=== PATIENT | female | born 1985 | race Two or more races ===

== ENCOUNTER 2017-05-26 13:43 | Emergency (ER) | payer SELFPAY ==
[2017-05-26 14:40] LABS: ABSOLUTE BASOPHILS # (AUTO) 0.1 10^3/uL (0.0-0.2); ABSOLUTE EOSINOPHILS # (AUTO) 0.3 10^3/uL (0.0-0.6); ABSOLUTE LYMPHOCYTES (AUTO) 3.2 10^3/uL (0.5-4.7); ABSOLUTE MONOCYTES (AUTO) 0.8 10^3/uL (0.1-1.4); ABSOLUTE NEUT (AUTO) 5.5 10^3/uL (1.7-8.2); BASOPHILS % (AUTO) 0.8 % (0-2); EOSINOPHILS % (AUTO) 3.5 % (0-6); HEMATOCRIT 40.1 % (36.0-47.0); HEMOGLOBIN 13.4 g/dL (12.0-15.5); HGB HCT DIFFERENCE 0.1; LYMPHOCYTES % (AUTO) 32.1 % (13-45); MEAN CORPUSCULAR HGB CONC 33.4 g/dL (32.0-36.0); MEAN CORPUSCULAR VOLUME 81 fl (80-97); MONOCYTES % (AUTO) 8.1 % (3-13); RED BLOOD COUNT 4.96 10^6/uL (3.72-5.28); RED CELL DISTRIBUTION WIDTH 14.5 % (11.5-14.0); SEGMENTED NEUTROPHILS % (AUTO) 55.5 % (42-78); WHITE BLOOD COUNT 9.9 10^3/uL (4.0-10.5)
[2017-05-26 14:46] LABS: APPEARANCE,URINE SLIGHTLY-CLOUDY; BILIRUBIN,URINE NEGATIVE (NEGATIVE); GLUCOSE, URINE NEGATIVE (NEGATIVE); KETONES,URINE NEGATIVE (NEGATIVE); LEUKOCYTE ESTERASE,URINE TRACE (NEGATIVE); NITRITE,URINE NEGATIVE (NEGATIVE); PROTEIN,URINE NEGATIVE (NEGATIVE); URINE SPECIFIC GRAVITY 1.011; UROBILINOGEN,URINE NEGATIVE mg/dL (<2.0)
[2017-05-26 14:54] LABS: ALANINE AMINOTRANSFERASE 36 U/L (9-52); ALBUMIN 4.6 g/dL (3.5-5.0); ALKALINE PHOSPHATASE 85 U/L (38-126); ANION GAP 12 (5-19); ASPARTATE AMINO TRANSFERASE 22 U/L (14-36); BILIRUBIN,DIRECT 0.3 mg/dL (0.0-0.4); BILIRUBIN,TOTAL 0.5 mg/dL (0.2-1.3); BLOOD UREA NITROGEN 11 mg/dL (7-20); CALCIUM 9.6 mg/dL (8.4-10.2); CARBON DIOXIDE 23 mmol/L (22-30); CHLORIDE 106 mmol/L (98-107); GLUCOSE 98 mg/dL (75-110); POTASSIUM 3.9 mmol/L (3.6-5.0); SODIUM 140.9 mmol/L (137-145); TOTAL PROTEIN 8.7 g/dL (6.3-8.2)
--- NOTE | 2017-05-26 15:08 | ER Document Report ---
ED General - General Chief Complaint: Chest Pain Stated Complaint: BACK/CHEST PAIN Time Seen by Provider: 05/26/17 14:10 Information source: Patient Notes: Patient states she woke up this morning with left-sided moderate to severe chest pain. Nothing made it better or worse. It was sharp and did not radiate. It was associated with some shortness of breath. Patient states that she does have antiphospholipid syndrome and is concerned about a blood clot. She has not had any leg swelling. She states she was told that she does not have lupus. No cough cold or congestion. Pain was constant. Patient states she had a large burp in the waiting room and now feels significantly better. TRAVEL OUTSIDE OF THE [place] IN LAST 30 DAYS: No - Related Data Allergies/Adverse Reactions: No Known Allergies Allergy (Verified 05/26/17 13:47) Past Medical History - Social History Smoking Status: Current Some Day Smoker Frequency of alcohol use: Occasional Drug Abuse: None Family History: Reviewed & Not Pertinent Patient has suicidal ideation: No Patient has homicidal ideation: No Pulmonary Medical History: Reports: Hx Asthma Renal/ Medical History: Denies: Hx Peritoneal Dialysis Past Surgical History: Reports: Hx Section - Immunizations Hx Diphtheria, Pertussis, Tetanus Vaccination: Yes Review of Systems - Review of Systems Constitutional: denies: Chills, Fever Cardiovascular: Chest pain. denies: Palpitations Respiratory: Short of breath. denies: Cough Genitourinary: denies: Dysuria, Flank pain -: Yes All other systems reviewed and negative Physical Exam - Vital signs Interpretation: Normal - General General appearance: Appears well, Alert - HEENT Head: Normocephalic, Atraumatic Eyes: Normal Pupils: PERRL - Respiratory Respiratory status: No respiratory distress Chest status: Nontender Breath sounds: Normal Chest palpation: Normal - Cardiovascular Rhythm: Regular Heart sounds: Normal auscultation Murmur: No - Abdominal Inspection: Normal Distension: No distension Bowel sounds: Normal Tenderness: Nontender Organomegaly: No organomegaly - Back Back: Normal, Nontender - Extremities General upper extremity: Normal inspection, Nontender, Normal color, Normal ROM , Normal temperature General lower extremity: Normal inspection, Nontender, Normal color, Normal ROM , Normal temperature, Normal weight bearing. No: David's sign - Neurological Neuro grossly intact: Yes Cognition: Normal Orientation: AAOx4 [place] Coma Scale Eye Opening: Spontaneous [place] Coma Scale Verbal: Oriented [place] Coma Scale Motor: Obeys Commands Saray Coma Scale Total: 15 Speech: Normal Motor strength normal: LUE, RUE, LLE, RLE Sensory: Normal - Psychological Associated symptoms: Normal affect, Normal mood - Skin Skin Temperature: Warm Skin Moisture: Dry Skin Color: Normal Course - Laboratory Result Diagrams: 05/26/17 14:28 05/26/17 14:28 Laboratory results interpreted by me: 05/26/17 05/26/17 05/26/17 14:15 14:28 14:28 RDW 14.5 H Total Protein 8.7 H Ur Leukocyte Esterase TRACE H Discharge - Discharge Condition: Stable Disposition: HOME, SELF-CARE Instructions: Chest Pain of Unclear Cause ([facility]) Additional Instructions: Please follow-up with your primary care physician as scheduled.
== END 2017-05-26 15:17 | disposition home or self-care (01) ==
LOC: ER 13:43
DX: R07.9 Chest pain, unspecified (principal); R06.02 Shortness of breath; D68.61 Antiphospholipid syndrome; F17.200 Nicotine dependence, unspecified, uncomplicated
CPT/HCPCS: 36415; 80053; 81001; 81025; 84484; 85025; 85379; 99285

== ENCOUNTER 2020-03-13 22:29 | Emergency (ER) | payer SELFPAY ==
[2020-03-13] MEDS ORDERED: PREDNISONE 20 MG TABLET PO ONE (22:39)
[2020-03-13] MEDS ORDERED: IPRATROPIUM/ALBUTEROL 0.5-2.5 MG/3 ML AMPUL NEB ONE (22:39)
[2020-03-13] MEDS: ALBUTEROL SULFATE 0.083% NEB 2.5 MG/3 ML AMPUL NEB SCH ×2 (22:46→23:34)
[2020-03-13] MEDS ORDERED: METHYLPREDNISOLONE INJ 125 MG/2 ML SDV IV ONE (23:07)
--- NOTE | 2020-03-13 23:14 | ER Document Report ---
ED General - General Chief Complaint: Asthma Exacerbation Stated Complaint: ASTHMA Time Seen by Provider: 03/13/20 22:49 TRAVEL OUTSIDE OF THE [place] IN LAST 30 DAYS: No - HPI Notes: Patient is a 34-year-old female with a history of asthma as well as antiphospholipid antibody syndrome who presents to the emergency department for evaluation of shortness of breath. Is been going on for the last several days but it worsened at approximately 7 PM tonight. She has pain in her chest and back, worsened with deep breaths. She describes this pain is sharp and sore. She has had exacerbations like this in the past "when the pollen is high." She has been using her albuterol rescue inhaler as well as her albuterol nebulizers, has not had any significant relief. She states that she has had temperatures at home, but none higher than 100.0. She has had no nausea or vomiting. She has a dry, nonproductive cough. Patient is never been intubated for her asthma in the past, but has been admitted to the hospital. Patient admits she is supposed to be on Lovenox therapy for her antiphospholipid antibody syndrome, but cannot afford the doctors visits and the medication, so she has not been taking it. S he does not have any history of DVT or PE. - Related Data Allergies/Adverse Reactions: No Known Allergies Allergy (Verified 05/26/17 13:47) Home Medications: Albuterol, ASA, Lovenox -with which she is currently being noncompliant Past Medical History - General Information source: Patient - Social History Smoking Status: Former Smoker Frequency of alcohol use: None Drug Abuse: None Family History: Reviewed & Not Pertinent Patient has homicidal ideation: No - Medical History Notes: Antiphospholipid antibody syndrome Pulmonary Medical History: Reports: Hx Asthma Renal/ Medical History: Denies: Hx Peritoneal Dialysis Past Surgical History: Reports: Hx Section, Hx Tubal Ligation - Immunizations Hx Diphtheria, Pertussis, Tetanus Vaccination: Yes Review of Systems - Review of Systems Constitutional: See HPI Cardiovascular: See HPI Respiratory: See HPI -: Yes All other systems reviewed and negative Physical Exam - Vital signs Vitals: Temp 99.6 F 03/13/20 22:33 - Notes Notes: Is a 34-year-old female appears her stated age in a mild amount of distress. She is tachypneic, mild conversational dyspnea is noted. Vital signs reviewed, please refer to chart. Head is normocephalic, atraumatic. Pupils equal round, reactive to light. Neck is supple without meningismus. Heart is tachycardic with normal S1, S2. Lungs revealed diminished breath sounds but no wheezes, rales, rhonchi. Patient is tachypneic, but no accessory muscles are being used. Abdomen is soft, nontender, normoactive bowel sounds throughout. Extremities without cyanosis, clubbing. Posterior calves are nontender. Peripheral pulses are equal. Skin is warm and dry. Patient is awake, alert, neurological exam is nonfocal. Course - Re-evaluation Re-evalutation: 03/13/20 23:23 Patient presents to the emergency department for evaluation. She is dyspneic. On arrival she is found to be tachycardic and tachypneic, but not hypoxic. She was placed on oxygen and is given DuoNeb treatment. Decision was made to forego oral steroids, patient will be administered magnesium and Solu-Medrol. Blood work is ordered. Will evaluate for response. Given her noncompliance with her Lovenox, her antiphospholipid antibody syndrome, and her lack of significant wheezing in light of significant tachycardia and tachypnea, will perform CT angiogram of the chest to rule out pulmonary embolus. Will wait for more significant stabilization of her current condition if possible, as to diminish motion artifact from tachypnea affecting the CTA images. 03/14/20 00:21 I went back into evaluate the patient. She states she is feeling somewhat improved, but she is still mildly tachypneic. Her lung exam, specifically improved breath sounds without significant wheezes or rales, it is not congruent with the amount of dyspnea that she is experiencing at this time. CT angiogram of the chest is ordered. 03/14/20 01:55 Patient is feeling significantly improved. She is 93 to 96% on room air. She remains tachycardic, however. This is likely secondary to the medications. She states she feels improved and wants to go home. She is breast-feeding her baby, who will not take a bottle. She states she does not want to stay. Chest CT shows possible bilateral pneumonia. We will get her treated with Zithromax. We will test for coronavirus, patient is instructed to isolate herself and her family members until results come back. We will send her with prednisone as well. She is to return to the ED with worsening. - Vital Signs Vital signs: Temp Pulse Resp BP Pulse Ox 99.6 F 134 H 40 H 130/85 H 96 03/13/20 22:34 03/13/20 22:34 03/13/20 22:34 03/13/20 22:34 03/13/20 22:34 - Laboratory Result Diagrams: 03/13/20 23:23 03/13/20 23:23 Laboratory results interpreted by me: 03/13/20 03/13/20 23:23 23:23 RDW 15.1 H Potassium 3.4 L Creatinine 0.51 L Glucose 135 H Total Protein 8.3 H - Diagnostic Test Radiology reviewed: Reports reviewed Radiology results interpreted by me: 03/14/20 01:58 Chest/Abdomen CTA 03/14/20 00:21 IMPRESSION: No aortic dissection or aneurysm. No pulmonary embolus. Bibasilar atelectasis with probable small areas of bilateral upper lobe pneumonia. Discharge - Discharge Clinical Impression: Asthma exacerbation Qualifiers: Asthma severity: moderate Asthma persistence: persistent Qualified Code(s): J45.41 - Moderate persistent asthma with (acute) exacerbation Bilateral pneumonia Qualifiers: Pneumonia type: due to unspecified organism Lung location: upper lobe of lung Qualified Code(s): J18.9 - Pneumonia, unspecified organism Condition: Stable Disposition: HOME, SELF-CARE Instructions: Antibiotic Therapy ([facility]), Azithromycin ([facility]), Inhaled Bronchodilators ([facility]), Asthma ([facility]), Pneumonia ([facility]) Additional Instructions: As discussed, your heart rate remains elevated. You do not want to be admitted at this time. Please continue to use your albuterol at home as needed. Please take the steroids and Zithromax as directed until they are gone. If you develop worsening shortness of breath, or any other new or concerning symptoms, please return immediately to the emergency department for reevaluation.
[2020-03-13 23:33] LABS: ABSOLUTE LYMPHOCYTES (AUTO) 1.4 10^3/uL (0.5-4.7); ABSOLUTE MONOCYTES (AUTO) 0.5 10^3/uL (0.1-1.4); ABSOLUTE NEUT (AUTO) 4.2 10^3/uL (1.7-8.2); BASOPHILS % (AUTO) 0.7 % (0-2); EOSINOPHILS % (AUTO) 0.1 % (0-6); HEMATOCRIT 37.2 % (36.0-47.0); HEMOGLOBIN 12.7 g/dL (12.0-15.5); LYMPHOCYTES % (AUTO) 23.2 % (13-45); MEAN CORPUSCULAR HEMOGLOBIN 27.7 pg (27.0-33.4); MEAN CORPUSCULAR HGB CONC 34.1 g/dL (32.0-36.0); MEAN CORPUSCULAR VOLUME 81 fl (80-97); MONOCYTES % (AUTO) 7.6 % (3-13); PLATELET COUNT 237 10^3/uL (150-450); RED BLOOD COUNT 4.59 10^6/uL (3.72-5.28); RED CELL DISTRIBUTION WIDTH 15.1 % (11.5-14.0); SEGMENTED NEUTROPHILS % (AUTO) 68.4 % (42-78); TOTAL CELLS COUNTED % (AUTO) 100 %; WHITE BLOOD COUNT 6.1 10^3/uL (4.0-10.5)
[2020-03-13] MEDS: MAGNESIUM SULFATE/D5W 1 GM/100 ML RTUPB IV SCH (23:35)
[2020-03-13 23:48] LABS: ALBUMIN 4.4 g/dL (3.5-5.0); ALKALINE PHOSPHATASE 71 U/L (38-126); ANION GAP 12 (5-19); ASPARTATE AMINO TRANSFERASE 28 U/L (14-36); BILIRUBIN,TOTAL 0.4 mg/dL (0.2-1.3); BLOOD UREA NITROGEN 10 mg/dL (7-20); CALCIUM 9.1 mg/dL (8.4-10.2); CARBON DIOXIDE 22 mmol/L (22-30); CHLORIDE 104 mmol/L (98-107); GLUCOSE 135 mg/dL (75-110); POTASSIUM 3.4 mmol/L (3.6-5.0); TOTAL PROTEIN 8.3 g/dL (6.3-8.2)
[2020-03-14] MEDS: MAGNESIUM SULFATE/D5W 1 GM/100 ML RTUPB IV SCH (00:27)
--- NOTE | 2020-03-14 01:36 | RADIOLOGY REPORT (SQ) ---
CLINICAL HISTORY: dyspnea, tachy, PE eval. HCG NEG COMPARISON: None. TECHNIQUE: CT CHEST ANGIOGRAPHY WITHOUT THEN WITH IV CONTRAST on 03/14/2020 12:21 AM CDT. MIPS reconstructions were generated. This exam was performed according to our departmental dose-optimization program, which includes automated exposure control, adjustment of the mA and/or kV according to patient size and/or use of iterative reconstruction technique. MIP images were generated. FINDINGS: Thoracic aorta is normal in course and caliber without aneurysm or dissection. Pulmonary arteries are adequately opacified without acute or chronic filling defects. The heart is normal in size. There is no pericardial effusion. Intrathoracic lymph nodes are not enlarged. There is no pleural effusion, pleural thickening or pneumothorax. Central airways are patent. There is moderate bibasilar atelectasis. There is mild patchy airspace disease within both upper lobes. There are no acute abnormalities within the limited images of the upper abdomen. There are no acute osseous findings. No suspicious bony lesions. IMPRESSION: No aortic dissection or aneurysm. No pulmonary embolus. Bibasilar atelectasis with probable small areas of bilateral upper lobe pneumonia.
[2020-03-14 01:57] VITALS: BP 113/62
[2020-03-14] MEDS ORDERED: AZITHROMYCIN 250 MG TABLET PO ONE (01:58)
== END 2020-03-14 02:46 | disposition home or self-care (01) ==
LOC: ER 22:29
DX: U07.1 COVID-19 (principal); J45.41 Moderate persistent asthma with (acute) exacerbation; J18.9 Pneumonia, unspecified organism; R00.0 Tachycardia, unspecified; Z79.82 Long term (current) use of aspirin; Z98.51 Tubal ligation status; Z20.828 Contact with and (suspected) exposure to other viral communicable diseases
CPT/HCPCS: 94640 ×2; 99285; 96375; 96365; 96366; 36415; 84703; 85025; 87635; 80053; 71275; J2930; J3475 ×2; J7620; C9803

== ENCOUNTER 2020-03-15 14:16 | Emergency (ER) | payer SELFPAY ==
[2020-03-15 14:23] VITALS: BP 119/54
--- NOTE | 2020-03-15 18:56 | EKG REPORT ---
SEVERITY:- ABNORMAL ECG - SINUS TACHYCARDIA PROBABLE LEFT ATRIAL ABNORMALITY NONSPECIFIC ST-T CHANGES, DIFFUSE : Confirmed by: Michael Tavarez MD 15-Mar-2020 18:56:09
== END 2020-03-15 16:30 | disposition left against medical advice (07) ==
LOC: ER 14:16
DX: Z53.29 Procedure and treatment not carried out because of patient's decision for other reasons (principal); R07.9 Chest pain, unspecified
CPT/HCPCS: 93005; 93010